=== PATIENT | male | born 1980 ===

== ENCOUNTER 2016-08-23 18:28 | Emergency (ER) | payer OTHER ==
[2016-08-23 18:32] VITALS: BP 149/89; PULSE 77; RESP 16; TEMP 98.1; O2SAT 100
[2016-08-23] MEDS ORDERED: Naproxen 550 mg Tab PO STA (18:42)
--- NOTE | 2016-08-23 18:44 | C.PDOC ---
History Of Present Illness 35 year old male who presents to the ER with a complaint of right ankle pain. Patient states he twisted his ankle last Monday; he reports it got swollen and the swelling went down after 2 days, however, the pain still persists. Patient did not take any medication for the pain. Denies weakness or numbness of the right foot. Time Seen by Provider: 08/23/16 18:41 Chief Complaint (Nursing): Lower Extremity Problem/Injury History Per: Patient History/Exam Limitations: no limitations Onset/Duration Of Symptoms: Days Current Symptoms Are (Timing): Still Present Recent travel outside of the [place]: No - Ankle/Foot Description Of Injury: Twisted Past Medical History Reviewed: Historical Data, Nursing Documentation, Vital Signs Vital Signs: Last Vital Signs Temp 98.1 F 08/23/16 18:30 Pulse 77 08/23/16 18:30 Resp 16 08/23/16 18:30 BP 149/89 08/23/16 18:30 Pulse Ox 100 08/23/16 18:46 - Medical History PMH: No Chronic Diseases Surgical History: No Surg Hx Family History: States: Unknown Family Hx - Social History Hx Tobacco Use: No Hx Alcohol Use: No Hx Substance Use: No - Immunization History Hx Tetanus Toxoid Vaccination: Yes Hx Influenza Vaccination: Yes Hx Pneumococcal Vaccination: No Review Of Systems Musculoskeletal: Positive for: Foot Pain (Right) Neurological: Negative for: Weakness, Numbness Physical Exam - Physical Exam Appears: Non-toxic, No Acute Distress Skin: Normal Color, Warm, Dry Head: Atraumatic, Normacephalic Oral Mucosa: Moist Extremity: Normal ROM, Tenderness (To anterior lateral malleolus), Capillary Refill (Good), No Swelling Pulses: Left Dorsalis Pedis: Normal, Right Dorsalis Pedis: Normal Neurological/Psych: Oriented x3, Normal Speech, Normal Cognition ED Course And Treatment O2 Sat by Pulse Oximetry: 100 (Room air) Pulse Ox Interpretation: Normal Progress Note: Anaprox administered. Del wrap applied to right ankle. Disposition Counseled Patient/Family Regarding: Diagnosis, Need For Followup, Rx Given - Disposition Referrals: [facility] [Outside] Disposition: HOME/ ROUTINE Disposition Time: 18:43 Condition: STABLE Additional Instructions: Wear Del bandage during awake hours, especially when on feet. Take Naproxen ( with food) for pain. Follow up in Medical Clinic in a week for re-evaluation. Prescriptions: Naproxen 500 mg PO BID #20 tab Instructions: Ankle Sprain (ED) Forms: General Discharge Instructions - Clinical Impression Clinical Impression: Right ankle sprain - Scribe Statement The provider has reviewed the documentation as recorded by the Merissaibshirley Montalvo All medical record entries made by the Merissaibshirley were at my direction and personally dictated by me. I have reviewed the chart and agree that the record accurately reflects my personal performance of the history, physical exam, medical decision making, and the department course for this patient. I have also personally directed, reviewed, and agree with the discharge instructions and disposition.
[2016-08-23] MEDS ORDERED: Naproxen 550 mg Tab PO ONE (18:45)
== END 2016-08-23 19:01 | disposition home or self-care (01) ==
LOC: C.ER 18:28
DX: S93.401A Sprain of unspecified ligament of right ankle, initial encounter (principal); X50.9XXA Other and unspecified overexertion or strenuous movements or postures, initial encounter

== ENCOUNTER 2016-12-07 12:31 | Emergency (ER) | payer OTHER ==
[2016-12-07 12:39] VITALS: TEMP 97.8
[2016-12-07] MEDS ORDERED: Naproxen 550 mg Tab PO STA (13:07)
[2016-12-07] MEDS ORDERED: Naproxen 550 mg Tab PO ONE (13:20)
--- NOTE | 2016-12-07 13:56 | C.PDOC ---
History Of Present Illness 36 year old male presents to the ED with complaints of right wrist and left shoulder pain beginning earlier today. 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 He denies foot pain, head trauma, LOC, neck pain, back pain. Time Seen by Provider: 12/07/16 12:41 Chief Complaint (Nursing): Upper Extremity Problem/Injury History Per: Patient History/Exam Limitations: no limitations Onset/Duration Of Symptoms: Hrs Current Symptoms Are (Timing): Still Present Quality: "Pain" Severity: Mild Exacerbating Factor(s): Movement Past Medical History Reviewed: Historical Data, Nursing Documentation, Vital Signs Vital Signs: Last Vital Signs Temp 97.8 F 12/07/16 14:24 Pulse 92 H 12/07/16 14:24 Resp 20 12/07/16 14:24 BP 125/89 12/07/16 14:24 Pulse Ox 100 12/07/16 20:20 - Medical History PMH: No Chronic Diseases Family History: States: No Known Family Hx - Social History Hx Tobacco Use: No Hx Alcohol Use: No Hx Substance Use: No - Immunization History Hx Tetanus Toxoid Vaccination: Yes Hx Influenza Vaccination: Yes Hx Pneumococcal Vaccination: No Review Of Systems Except As Marked, All Systems Reviewed And Found Negative. Constitutional: Negative for: Fever, Chills Cardiovascular: Negative for: Chest Pain, Palpitations Respiratory: Negative for: Shortness of Breath Gastrointestinal: Negative for: Abdominal Pain Musculoskeletal: Positive for: Shoulder Pain (left shoulder pain ), Hand Pain ( right wrist pain ). Negative for: Neck Pain, Leg Pain, Foot Pain Neurological: Negative for: Weakness, Numbness, Headache, Dizziness Physical Exam - Physical Exam Appears: Well, Non-toxic, Other ( in mild pain ) Skin: Normal Color, Warm, Dry, No Rash Head: Atraumatic, Normacephalic Oral Mucosa: Moist Neck: Normal ROM, No Midline Cervical Tenderness, No Paracervical Tenderness, Supple Cardiovascular: Rhythm Regular, No Murmur Respiratory: Normal Breath Sounds, No Rales, No Rhonchi, No Wheezing Gastrointestinal/Abdominal: Normal Exam, Bowel Sounds, Soft, No Tenderness Back: No CVA Tenderness, Vertebral Tenderness (at approx T3 thoracic area, (+) midline tenderness), No Paraspinal Tenderness Extremity: Normal ROM (Full ROM of left shoulder and right wrist ), Tenderness ( Anterior left shoulder mild tenderness to palpation. Mild diffuse tenderness to palpation of right wrist. ), Capillary Refill (< 2 sec all digits ), No Deformity, No Swelling, Other (No erythema of the right wrist ) Extremity: Bilateral: Normal Color And Temperature, Normal ROM Pulses: Left Radial: Normal, Right Radial: Normal, Left Dorsalis Pedis: Normal, Right Dorsalis Pedis: Normal Neurological/Psych: Oriented x3, Normal Speech, Normal Motor, Normal Sensation Gait: Steady ED Course And Treatment O2 Sat by Pulse Oximetry: 100 (RA) Pulse Ox Interpretation: Normal - Other Rad right wrist Xray X-Ray: Interpreted by Me, Viewed By Me (no fractures/dislocations) left shoulder Xray X-Ray: Interpreted by Me, Viewed By Me (no fractures/dislocations) thoracic spine Xray X-Ray: Interpreted by Me, Viewed By Me (no fractures/listhesis) Progress Note: Xrays of right wrist, left shoulder, thoracic spine ordered and reviewed. Patient given PO Naprosyn for pain. Left shoulder sling applied by agricultural research technologist for comfort. Reevaluation Time: 14:30 Reassessment Condition: Improved (Patient reassessed, is currently resting comfortably and states he feels better. Xrays (-) for fracture. Patient instructed to follow up with orthopedics within 1 week. He was given Rxs for Naprosyn and Flexeril, and instructed to return to ED if symptoms worsen.) Disposition Counseled Patient/Family Regarding: Studies Performed, Diagnosis, Need For Followup, Rx Given - Disposition Referrals: Bennett Keane MD [Staff Provider] - [facility] [Outside] Disposition: HOME/ ROUTINE Disposition Time: 14:30 Condition: STABLE Prescriptions: Cyclobenzaprine [Cyclobenzaprine HCl] 10 mg PO BID PRN #15 tab PRN Reason: Muscle Spasm Naproxen 375 mg PO BID PRN #25 tablet PRN Reason: pain Instructions: Shoulder Sprain (ED), Thoracic Pain (ED), Wrist Sprain (ED) Forms: [employer] (Bahamian) Print Language: WOLOF - POA Present On Arrival: None, Falls Or Trauma - Clinical Impression Clinical Impression: Right wrist sprain, Sprain of shoulder, left, Thoracic back sprain - Scribe Statement The provider has reviewed the documentation as recorded by the Scribe Ml Valdez All medical record entries made by the Merissaibe were at my direction and personally dictated by me. I have reviewed the chart and agree that the record accurately reflects my personal performance of the history, physical exam, medical decision making, and the department course for this patient. I have also personally directed, reviewed, and agree with the discharge instructions and disposition.
--- NOTE | 2016-12-07 14:12 | RAD ---
PROCEDURE: Right Wrist Radiographs. HISTORY: RIGHT WRIST PAIN, R/O FX COMPARISON: None. FINDINGS: BONES: Normal. No fracture. JOINTS: Normal. No dislocation. SOFT TISSUES: Normal. OTHER FINDINGS: None. IMPRESSION: Normal right wrist radiographs.
[2016-12-07 14:25] VITALS: BP 125/89; PULSE 92; RESP 20
--- NOTE | 2016-12-07 14:28 | RAD ---
PROCEDURE: Radiographs of the Left Shoulder HISTORY: LEFT SHOULDER PAIN, R/O FX COMPARISON: No prior. FINDINGS: BONES: Normal. No fracture. JOINTS: Normal. Glenohumeral and acromioclavicular joints preserved. No osteoarthritis. SOFT TISSUES: Normal. OTHER FINDINGS: None. IMPRESSION: No evidence of acute fracture or dislocation.
--- NOTE | 2016-12-07 15:07 | RAD ---
HISTORY: UPPER BACK PAIN AFTER FALL COMPARISON: No prior. FINDINGS: BONES: Normal thoracic curvature. No definite displaced fracture. No spondylolisthesis is appreciated. No destructive bony lesions identified. DISC SPACES: Normal vertebral body disc interspace heights are identified. SOFT TISSUES: Normal. OTHER FINDINGS: None. IMPRESSION: Unremarkable thoracic spine series.
[2016-12-07 19:59] VITALS: O2SAT 100
== END 2016-12-07 14:30 | disposition home or self-care (01) ==
LOC: C.ER 12:31
DX: S63.501A Unspecified sprain of right wrist, initial encounter (principal); S43.402A Unspecified sprain of left shoulder joint, initial encounter; W18.30XA Fall on same level, unspecified, initial encounter; Y93.89 Activity, other specified; Y92.89 Other specified places as the place of occurrence of the external cause; Y99.0 Civilian activity done for income or pay

== ENCOUNTER 2017-06-12 10:55 | Emergency (ER) | payer OTHER ==
[2017-06-12 11:50] VITALS: BP 122/73; PULSE 69; RESP 18; TEMP 97.9; O2SAT 99
[2017-06-12] MEDS ORDERED: Lidocaine 5% Patch TD STA (12:07)
--- NOTE | 2017-06-12 12:07 | C.PDOC ---
History Of Present Illness 36 y/o male presents to the ED for evaluation of neck pain which began yesterday. Patient states pain began after he was pulling a heavy object towards himself. Pain worsened last night and today. Pain is localized to left side of neck and is worse with movement. Patient denies associated weakness and numbness. NECK PAIN SINCE YEST. ONSET AFTER PULLING HEAVY OBJECT TOWARDS HIMSELF. PAIN WORSENING LAST NIGHT AND TODAY. LOCALIZED L NECK, WORSE W MOVEMENT. NO ASSOC WEAK NUMB EXAM MILD DIST NONTOXIC NECK PAIN W L LAT ROTATION, FULL. NO BONY TEND. +SPASM L LAT NECK W LOCAL TEND REMAINDER NEG Time Seen by Provider: 06/12/17 11:55 Chief Complaint (Nursing): Upper Extremity Problem/Injury History Per: Patient History/Exam Limitations: no limitations Onset/Duration Of Symptoms: Hrs Current Symptoms Are (Timing): Worse Quality Of Discomfort: "Pain" Previous Symptoms: Neck Pain Associated Symptoms: denies: New Weakness Exacerbating Factor(s): Movement Additional History Per: Patient Past Medical History Reviewed: Historical Data, Nursing Documentation, Vital Signs Vital Signs: Last Vital Signs Temp 97.9 F 06/12/17 11:48 Pulse 69 06/12/17 11:48 Resp 18 06/12/17 11:48 BP 122/73 06/12/17 11:48 Pulse Ox 99 06/12/17 15:40 - Medical History PMH: No Chronic Diseases Surgical History: No Surg Hx Family History: States: Unknown Family Hx - Social History Hx Tobacco Use: No Hx Alcohol Use: No Hx Substance Use: No - Immunization History Hx Tetanus Toxoid Vaccination: Yes Hx Influenza Vaccination: Yes Hx Pneumococcal Vaccination: No Review Of Systems Musculoskeletal: Positive for: Neck Pain Neurological: Negative for: Weakness, Numbness Physical Exam - Physical Exam Appears: Non-toxic, Other (in mild distress ) Skin: Normal Color, Warm, Dry Head: Atraumatic, Normacephalic Eye(s): bilateral: Normal Inspection Oral Mucosa: Moist Neck: Supple, Other (neck pain with left latral rotation, full ROM. No bony tenderness. +spasm to left lateral neck with localized tenderness ) Chest: Symmetrical, No Deformity, No Tenderness Cardiovascular: Rhythm Regular, No Murmur Respiratory: Normal Breath Sounds, No Rales, No Rhonchi, No Wheezing Extremity: Normal ROM, Capillary Refill (less than 2 seconds) Neurological/Psych: Oriented x3, Normal Speech, Normal Cognition Gait: Steady ED Course And Treatment O2 Sat by Pulse Oximetry: 99 (on RA) Pulse Ox Interpretation: Normal Progress Note: Flexeril PO, Lidoderm TD, Toradol IM, and Tylenol PO administered. Disposition Counseled Patient/Family Regarding: Diagnosis, Need For Followup, Rx Given - Disposition Referrals: YOUR,PMD [Other] Disposition: HOME/ ROUTINE Disposition Time: 12:07 Condition: IMPROVED Prescriptions: Acetaminophen [Tylenol Extra Strength] 2 tab PO Q6 #30 tablet Cyclobenzaprine [Flexeril] 10 mg PO TID #15 tab Ibuprofen [Motrin] 600 mg PO Q6 #30 tab Lidocaine 5% [Lidoderm] 1 ea TD PRN PRN #10 patch PRN Reason: Pain, Moderate (4-7) Instructions: Torticollis (DC) Forms: [employer] ([place] Islander), Work Excuse - Clinical Impression Clinical Impression: Torticollis, acute - Scribe Statement The provider has reviewed the documentation as recorded by the Scribe (Sima Lopez) Provider Attestation: All medical record entries made by the Scribe were at my direction and personally dictated by me. I have reviewed the chart and agree that the record accurately reflects my personal performance of the history, physical exam, medical decision making, and the department course for this patient. I have also personally directed, reviewed, and agree with the discharge instructions and disposition.
[2017-06-12] MEDS ORDERED: Lidocaine 5% Patch TD ONE (12:16)
== END 2017-06-12 12:28 | disposition home or self-care (01) ==
LOC: C.ER 10:55
DX: M43.6 Torticollis (principal)
CPT/HCPCS: 96372; 99283; J1885

== ENCOUNTER 2017-07-15 18:44 | Emergency (ER) | payer OTHER ==
[2017-07-15 18:53] VITALS: BP 128/81; PULSE 80; TEMP 98.1; O2SAT 100
--- NOTE | 2017-07-15 19:11 | C.PDOC ---
History Of Present Illness 36 year old male presents to the ED complaining of left sided neck pain that began this morning. Patient stated he woke up with pain. Pain is worsened with movement. Patient denies any injury, trauma, headache, dizziness or shortness of breath. Time Seen by Provider: 07/15/17 18:55 Chief Complaint (Nursing): Back Pain History Per: Patient History/Exam Limitations: no limitations Onset/Duration Of Symptoms: Hrs Current Symptoms Are (Timing): Still Present Past Medical History Reviewed: Historical Data, Nursing Documentation, Vital Signs Vital Signs: Last Vital Signs Temp 98.1 F 07/15/17 18:51 Pulse 80 07/15/17 18:51 Resp 20 07/15/17 19:28 BP 128/81 07/15/17 18:51 Pulse Ox 100 07/15/17 19:36 - Medical History PMH: No Chronic Diseases Surgical History: No Surg Hx Family History: States: No Known Family Hx - Social History Hx Tobacco Use: No Hx Alcohol Use: No Hx Substance Use: No - Immunization History Hx Tetanus Toxoid Vaccination: Yes Hx Influenza Vaccination: Yes Hx Pneumococcal Vaccination: No Review Of Systems Except As Marked, All Systems Reviewed And Found Negative. Respiratory: Negative for: Shortness of Breath Musculoskeletal: Positive for: Neck Pain (Left sided) Neurological: Negative for: Headache, Dizziness Physical Exam - Physical Exam Appears: Non-toxic, No Acute Distress Skin: Normal Color, Warm, Dry Head: Atraumatic, Normacephalic Eye(s): bilateral: Normal Inspection Ear(s): Bilateral: Normal Nose: Normal Neck: Normal ROM, Supple, Other (Left trapezius muscle tenderness ) Lymphatic: Normal Exam, No Adenopathy Chest: Symmetrical Cardiovascular: Rhythm Regular Respiratory: Normal Breath Sounds, No Rales, No Rhonchi, No Wheezing Extremity: Bilateral: Atraumatic Neurological/Psych: Oriented x3, Normal Speech Gait: Steady ED Course And Treatment O2 Sat by Pulse Oximetry: 100 (RA) Pulse Ox Interpretation: Normal Medical Decision Making Medical Decision Making: Impression: neck pain, muscle strain Plan: -Motrin - Flexeril Reassess: Patient reports feeling better, pain improving. He remains afebrile and moving neck easily, no stiffness, no headache, no dizziness. Patient stable for discharge Rx given. Disposition Counseled Patient/Family Regarding: Diagnosis, Need For Followup, Rx Given - Disposition Referrals: Scott Jovel MD [Staff Provider] - Disposition: HOME/ ROUTINE Disposition Time: 19:30 Condition: IMPROVED Additional Instructions: You can apply heat to area Take Tylenol 500mg for any pain Take Ibuprofen as needed for pain every 6-8 hours, with food to not upset stomach Take Flexeril every 8 hours as needed for muscular pain and spasm, caution may cause drowsiness Prescriptions: Cyclobenzaprine [Cyclobenzaprine HCl] 10 mg PO TID #21 tab Ibuprofen [Motrin] 600 mg PO Q8 #30 tab Instructions: Cervical Muscle Strain (DC) Forms: [employer] (Upper Sorbian) - POA Present On Arrival: None - Clinical Impression Clinical Impression: Neck muscle strain - PA / AWNING FRAME [employer]KER / Resident Statement MD/DO has reviewed & agrees with the documentation as recorded. - Scribe Statement The provider has reviewed the documentation as recorded by the Scribe (Malena Macias) All medical record entries made by the Scribe were at my direction and personally dictated by me. I have reviewed the chart and agree that the record accurately reflects my personal performance of the history, physical exam, medical decision making, and the department course for this patient. I have also personally directed, reviewed, and agree with the discharge instructions and disposition.
[2017-07-15 19:34] VITALS: RESP 20
== END 2017-07-15 19:27 | disposition home or self-care (01) ==
LOC: C.ER 18:44
DX: S16.1XXA Strain of muscle, fascia and tendon at neck level, initial encounter (principal); X58.XXXA Exposure to other specified factors, initial encounter; Y92.9 Unspecified place or not applicable